=== PATIENT | female | born 1975 | race Hispanic/Latino ===

== ENCOUNTER → 2024-05-14 06:24 | Day surgery (SDC) | payer BC, SELFPAY | LOC: GI 06:24 | PROVIDERS: ATTENDING PHYSICIAN Internal Medicine Gastroenterology | DX: K22.89 Other specified disease of esophagus (principal); K31.89 Other diseases of stomach and duodenum; R12 Heartburn; K29.50 Unspecified chronic gastritis without bleeding; K21.00 Gastro-esophageal reflux disease with esophagitis, without bleeding | CPT/HCPCS: 43239; 88305; 88342 ==

== ENCOUNTER 2024-09-14 20:33 | Emergency (ER) | payer BC, SELFPAY ==
[2024-09-14 20:35] VITALS: BP 124/87
[2024-09-14 20:49] VITALS: BMI 39.1
[2024-09-14 21:08] LABS: % Basophils 0.4 % (0-2); % Eosinophils 0.4 % (0-6); % Immature Granulocytes 0.5 % (0-0.5); % Monocytes 9.3 % (1.7-9.3); % Neutrophils 80.4 % (42.2-75.2); Absolute Lymphocytes 0.7 10^3/uL (1.2-3.4); Absolute Monocytes 0.7 10^3/uL (0.1-0.6); Absolute Neutrophils 6.2 10^3/uL (1.4-6.5); Hematocrit 37.8 % (37.0-47.0); Mean Corp Hgb Conc. 34.4 g/dL (33.0-37.0); Mean Corpuscular Volume 87.1 fL (81.0-99.0); Mean Platelet Volume 9.4 fL (7.4-10.4); Nucleated Red Blood Cells % 0 %; Platelet Count 255 10^3/uL (130-400); Red Blood Cell Count 4.34 10^6/uL (4.20-5.40); Red Cell Dist. Width 13.8 % (11.5-14.5); White Blood Cell Count 7.8 10^3/uL (4.8-10.8)
--- NOTE | 2024-09-14 21:12 | ED.GENMED ---
History of Present Illness
<Yaz Will MD, Resident - Last Filed: 09/15/24 15:12>
General
Chief Complaint: Cold/Flu/URI Symptoms
Source: patient
Time Seen by Provider: 09/14/24 20:42
History of Present Illness
History of Present Illness:
This is a 48 year old female patient with no significant PMH who presented to the ED with concerns of cough and body aches. She states that on she had a family member she was in contact with who was not feeling well. She then started to
have symptoms of a headache and chills today. She then proceeded to have body aches, cough and feeling feverish. She denies having taken any over the counter medication. She denies any palpitations or vomiting.
Past History
<Yaz Will MD, Resident - Last Filed: 09/15/24 15:12>
Past History
ED Past Medical History: Negative IDDM
Social History
Tobacco: Non-smoker
Alcohol: None
Drug: None
Employment: Employed
Family History
Family History: Hypertension
Review of Systems
<Yaz Will MD, Resident - Last Filed: 09/15/24 15:12>
Review of Systems
Constitutional: Reports chills
EENT: Reports other (right ear pain)
Respiratory: Reports cough
Cardiac: Denies palpitations
ABD/GI: Reports nausea; Denies abdominal pain or vomiting
Musculoskeletal: Reports joint pain and muscle pain
Neurological: Reports headache
Phy Exam
<Yaz Will MD, Resident - Last Filed: 09/15/24 15:12>
General Physical Exam
General Presentation: mild distress
ENT Exam
ENT Exam: TM's normal
Cardiovascular Exam
Cardiovascular Exam: regular rate/rhythm and no murmur
Heart Sounds: normal
Pulmonary Exam
Pulmonary Exam: other (wheezing in lower lung bases)
Gastrointestinal Exam
Gastrointestinal Exam: non tender, soft and non distended
Neurological Exam
Neurological Exam: oriented x3
Musculoskeletal Exam
Musculoskeletal Exam: no edema
Skin Exam
Skin Exam: warm/dry
Psychiatric Exam
Psychiatric Exam: normal mood/affect
Course
<Yaz Jessica Will MD, Resident - Last Filed: 09/15/24 15:12>
Orders/Labs/Results
Orders:
Orders
09/14/24 20:38
EKG [Electrocardiogram (*1)] Urgent
Reason for Study: Tachycardia
EKG- Treatment ONCE
09/14/24 20:58
CXR2 [CR Chest - 2 Views ] Urgent
Comment:
Reason For Exam: cough/sob
09/14/24 21:00
CMP [Comprehensive Metabolic Panel] Urgent
COVID-19 Antigen Urgent
Source: Nasal Swab
Complete Blood Count/With Diff Urgent
Influenza A+B Rapid Molecular Urgent
JASE Source: Nasal Swab
Specimen Description:
09/14/24 21:18
Acetaminophen [Tylenol] 1,000 mg PO NOW STA
09/14/24 21:19
0.9% Sodium Chloride 1000 ml [Nss] 1,000 ml IV BOLUS
09/14/24 21:28
Oseltamivir Phosphate [Tamiflu] 75 mg PO NOW STA
09/14/24 22:28
0.9% Sodium Chloride 500 ml [Nss] 500 ml IV BOLUS
Ketorolac [Toradol] 15 mg .ROUTE .STK-MED ONE
Ketorolac [Toradol] 15 mg IV NOW STA
Abnormal Lab Results
09/14/24
21:00
Absolute Lymphs (auto) 0.7 L 10^3/uL
(1.2-3.4)
Absolute Monos (auto) 0.7 H 10^3/uL
(0.1-0.6)
Neutrophils % 80.4 H %
(42.2-75.2)
Lymphocytes % 9.0 L %
(20.5-51.1)
Sodium 134 L mmol/L
(135-145)
Carbon Dioxide 21 L mmol/L
(22-30)
Creatinine 1.1 H mg/dL
(0.6-1.0)
09/14/24 21:00
09/14/24 21:00
Vital Signs
Initial and Last Documented VS:
Initial Vital Signs
Temp Pulse Resp BP Pulse Ox
99.1 F 132 20 124/87 98
09/14/24 20:35 09/14/24 20:35 09/14/24 20:35 09/14/24 20:35 09/14/24 20:35
Last Documented Vital Signs
Temp Pulse Resp BP Pulse Ox
99.1 F 91 18 104/78 88
09/14/24 20:35 09/14/24 23:15 09/14/24 23:15 09/15/24 00:00 09/15/24 00:00
<Caesar Mckeon, DO - Last Filed: 09/14/24 22:31>
Orders/Labs/Results
Orders:
Orders
09/14/24 20:38
EKG [Electrocardiogram (*1)] Urgent
Reason for Study: Tachycardia
EKG- Treatment ONCE
09/14/24 20:58
CXR2 [CR Chest - 2 Views ] Urgent
Comment:
Reason For Exam: cough/sob
09/14/24 21:00
CMP [Comprehensive Metabolic Panel] Urgent
COVID-19 Antigen Urgent
Source: Nasal Swab
Complete Blood Count/With Diff Urgent
Influenza A+B Rapid Molecular Urgent
JASE Source: Nasal Swab
Specimen Description:
09/14/24 21:18
Acetaminophen [Tylenol] 1,000 mg PO NOW STA
09/14/24 21:19
0.9% Sodium Chloride 1000 ml [Nss] 1,000 ml IV BOLUS
09/14/24 21:28
Oseltamivir Phosphate [Tamiflu] 75 mg PO NOW STA
09/14/24 22:28
0.9% Sodium Chloride 500 ml [Nss] 500 ml IV BOLUS
Ketorolac [Toradol] 15 mg .ROUTE .STK-MED ONE
Ketorolac [Toradol] 15 mg IV NOW STA
Abnormal Lab Results
09/14/24
21:00
Absolute Lymphs (auto) 0.7 L 10^3/uL
(1.2-3.4)
Absolute Monos (auto) 0.7 H 10^3/uL
(0.1-0.6)
Neutrophils % 80.4 H %
(42.2-75.2)
Lymphocytes % 9.0 L %
(20.5-51.1)
Sodium 134 L mmol/L
(135-145)
Carbon Dioxide 21 L mmol/L
(22-30)
Creatinine 1.1 H mg/dL
(0.6-1.0)
09/14/24 21:00
09/14/24 21:00
Vital Signs
Pulse: 107
Initial and Last Documented VS:
Initial Vital Signs
Temp Pulse Resp BP Pulse Ox
99.1 F 132 20 124/87 98
09/14/24 20:35 09/14/24 20:35 09/14/24 20:35 09/14/24 20:35 09/14/24 20:35
Last Documented Vital Signs
Temp Pulse Resp BP Pulse Ox
99.1 F 91 18 104/78 88
09/14/24 20:35 09/14/24 23:15 09/14/24 23:15 09/15/24 00:00 09/15/24 00:00
<Yaz Will MD, Resident - Last Filed: 09/15/24 15:12>
MDM/Problems Addressed
Differential Diagnosis Includes:
COVID, Flu, Pneumonia, Acute Bronchitis
MDM/Problems Addressed:
CBC/CMP with no acute significant findings. CXR showed no acute findings. Started IV fluids and Tamiflu (after discussing with patient). Patient continued to have headache and body aches so given Toradol along with another 1L of fluids. Patients HR
improved to 90s and her headache has also improved. Patient is stable for discharge and will be advised to take alternating Tylenol/Ibuprofen along with Tamiflu for another 4 days to finish 5 day course (she has already received intial dose here).
<Caesar Mckeon DO - Last Filed: 09/14/24 22:31>
*Radiology
Radiology exam reviewed: all reviewed NAD by ED Provider
*Pulse Oximetry
Patient hypoxic: no
*Program Engineer Interpretation
Rate: tachycardiac
Interpretation: abnormal
Heart Rate: 107
Rhythm: sinus
*Critical Care Note
Total Time (30-74mins, 75-104mins- exclusive of procedures): Not Applicable
Data Reviewed
Source: patient
Prescriptions/Medications Considered But Not Given:
Considered antibiotics but influenza A positive
ED Attending Note
<Yaz Will MD, Resident - Last Filed: 09/15/24 15:12>
-
Portions of this chart may have been created with voice recognition software.� Occasional wrong word or��sound alike� substitutions may have occurred due to the inherent limitations of voice recognition software.
<Caesar Mckeon DO - Last Filed: 09/14/24 22:31>
ED Attending Note
Patient seen and examined by attending physician: Yes
I performed a history and physical exam of patient and discussed management with resident, I reviewed resident's note and agree with documented findings and plan of care.: Yes
ED Attending Note:
This is a 48yo female who presents with bodyaches, fevers and ORELLANA's. Patient reports that she had a mild 'tickle' in her throat last night but today woke up with bodyaches. On my exam she feels a little better with IV fluids but still with a
headache and some bodyaches. Exam: Awake and alert, no respiratory distress, heart rate at 107 on exam. Assessment and plan: Treat with Tamiflu, fluids, fever control. Reassess
Discharge Plan
Departure
Patient Disposition: Home (Routine Discharge)
Date of Disposition: 09/14/24
Time of Disposition: 23:43
Patient with high blood pressure during this ER visit?: No
Discharge Problem:
Flu
Prescriptions:
New
oseltamivir [Tamiflu] 75 mg capsule
75 mg PO BID 4 Days Qty: 8 0RF
No Action
cephalexin 500 MG capsule
500 mg PO QID Qty: 20 0RF
ibuprofen 600 MG tablet
600 mg PO Q6H Qty: 30 0RF
albuterol sulfate [ProAir HFA] 90 mcg/actuation HFA aerosol inhaler
2 puff inhalation QID PRN (Reason: shortness of breath or wheezing) Qty: 8.5 0RF
prednisone 20 mg tablet
40 mg PO DAILY Qty: 8 0RF
Stand Alone Forms: Return to Work
Activity Restrictions/Additional Instructions:
If experiencing symptoms such as worsening body aches/headaches, continued high grade fevers or chills or worsening SOB, please return to the ED. Take Tamiflu twice a day for the next four days. Alternate between Tylenol and Ibuprofen every 6 hours
for the next 3 days. Follow up with your family physician in a week.
Interventions
Interventions:
*Risk Screen - Suicide Last Done: 09/14/24 20:35
*General Assessment Last Done: 09/14/24 20:49
*Neglect/Abuse Screening Last Done: 09/14/24 20:35
ED- Fall Risk Assessment Last Done: 09/14/24 20:49
*ED COVID-19 Vaccine History Last Done: 09/14/24 20:49
*Nursing Disposition Last Done: 09/15/24 00:16
ED- Pulmonary Assessment Last Done: 09/14/24 20:49
Discharge Date and Time
Discharge Date/Time: 09/15/24 00:20
Print Language: KOREAN
[2024-09-14] MEDS: TYLENOL 1000 MG PO (21:22)
[2024-09-14 21:23] LABS: COVID-19 Antigen Negative (Negative)
[2024-09-14] MEDS: NSS 1000 IV (21:24)
[2024-09-14 21:25] VITALS: BP 129/79
[2024-09-14 21:25] LABS: ALT (SGPT) 32 U/L (0-35); AST (SGOT) 33 U/L (14-36); Albumin 4.7 g/dl (3.5-5.0); Alkaline Phosphatase 70 U/L (38-126); Blood Urea Nitrogen 14 mg/dl (7-17); Calcium 9.5 mg/dl (8.4-10.2); Carbon Dioxide 21 mmol/L (22-30); Chloride 100 mmol/L (98-107); Estimated Creatinine Clearance 79 ml/min; Glucose 99 mg/dl (70-99); Potassium 3.9 mmol/L (3.5-5.1); Sodium 134 mmol/L (135-145); Total Bilirubin 0.5 mg/dl (0.2-1.3); Total Protein 8.1 g/dl (6.3-8.2); eGFR > 60.00
[2024-09-14] MEDS: TAMIFLU 75 MG PO (21:41)
[2024-09-14 22:00] VITALS: BP 112/69
[2024-09-14] MEDS: TORADOL 15 MG IV (22:30)
[2024-09-14] MEDS: NSS 500 IV (22:31)
[2024-09-14 23:00] VITALS: BP 115/55
[2024-09-14 23:41] VITALS: BP 112/60
[2024-09-15] VITALS: BP 104/78
== END 2024-09-15 00:20 | disposition home or self-care (01) ==
LOC: EMR 20:33
PROVIDERS: EMERGENCY PHYSICIAN Emergency Medicine
DX: J11.1 Influenza due to unidentified influenza virus with other respiratory manifestations (principal); R51.9 Headache, unspecified; R11.0 Nausea; M79.10 Myalgia, unspecified site; H92.01 Otalgia, right ear; Z11.52 Encounter for screening for COVID-19
CPT/HCPCS: 99284; 96374; 71046; 80053; 85025; 87502; 87811; 93005